=== PATIENT | male | born 1950 | race Two or more races ===

== ENCOUNTER 2020-01-27 17:22 | Emergency (ER) | payer OTHER ==
[~2020-01-27] VITALS: Ht 180.3 cm; Wt 77.1 kg
[2020-01-27 21:13] LABS: Basophils # (auto) 0 10 ^3/uL (0-0.2); Basophils % (auto) 0.3 % (0.0-2.0); Eosinophils # (auto) 0 10 ^3/uL (0-0.8); Hemoglobin 12.8 g/dL (13.5-17.5); Lymphocytes # (auto) 0.7 10 ^3/uL (0.4-5.4); Lymphocytes % (auto) 19.5 % (10.0-50.0); Mean Corpuscular Hemoglobin 28.6 pg (28.0-32.0); Mean Corpuscular Hgb Conc. 34.7 g/dL (32.0-36.0); Mean Corpuscular Volume 82.5 fL (80.0-100.0); Monocytes # (auto) 0.4 10 ^3/uL (0-1.3); Monocytes % (auto) 11.4 % (0.0-12.0); Neutrophils # (auto) 2.5 10 ^3/uL (1.6-8.6); Neutrophils % (auto) 68.8 % (37.0-80.0); Nucleated Red Blood Cells % 0.1 %; Platelet Count (auto) 111 10^3/uL (140-450); Red Blood Cells 4.49 10^6/uL (4.5-5.90); White Blood Cell 3.6 10^3/uL (4.4-10.8)
[2020-01-27 21:31] LABS: Albumin 3.3 g/dL (3.4-5.0); Calcium 8.9 mg/dL (8.5-10.1); Potassium 4.6 mmol/L (3.5-5.1)
[2020-01-27 21:34] LABS: BUN/Creatinine Ratio 17.2; Bilirubin, Total 0.4 mg/dL (0.2-1.0); Total Protein 7.8 g/dL (6.4-8.2)
[2020-01-27 21:42] VITALS: BP 111/57
[2020-01-27] MEDS ORDERED: ONDANSETRON ODT 4 MG TAB PO ONE (23:30)
== END 2020-01-27 23:48 | disposition home or self-care (01) ==
LOC: ER 17:24
DX: U07.1 COVID-19 (principal); K52.9 Noninfective gastroenteritis and colitis, unspecified; J18.8 Other pneumonia, unspecified organism
CPT/HCPCS: 36415; 71045; 80053; 85025; 87426; 93005; 99285; Q0162

== ENCOUNTER 2023-06-25 02:37 | Emergency (ER) | payer OTHER ==
[~2023-06-25] VITALS: Ht 167.6 cm; Wt 97.8 kg
[2023-06-25] MEDS ORDERED: TRAM-626 PO (04:23)
[2023-06-25] MEDS ORDERED: HYDROcodone-ACET 5/325MG TAB PO ONE (04:30)
[2023-06-25 04:34] VITALS: TEMP 97.8; O2SAT 95
[2023-06-25] MEDS: predniSONE 20 MG TAB PO ONE (04:37)
[2023-06-25] MEDS: MORPHINE SULFATE INJ 2 MG/ml SYRG IM ONE (04:38)
[2023-06-25 05:05] VITALS: BP 137/65; PULSE 62; RESP 18
== END 2023-06-25 05:07 | disposition home or self-care (01) ==
LOC: ER 02:37
DX: M51.36 Other intervertebral disc degeneration, lumbar region (principal); M62.830 Muscle spasm of back; M54.42 Lumbago with sciatica, left side; M25.552 Pain in left hip; I10 Essential (primary) hypertension; E11.9 Type 2 diabetes mellitus without complications
CPT/HCPCS: 72100; 73502; 93971; 96372; 99285; J2270; J7512